=== PATIENT | female | born 1985 | race Caucasian/White ===

== ENCOUNTER 2018-04-08 08:36 | Inpatient (IN) | payer BC ==
[2018-04-08] MEDS ORDERED: Lactated Ringer's 1,000 ML IV ONE (09:50)
[2018-04-08] MEDS ORDERED: Lactated Ringer's 1,000 ML IV SCH ×2 (10:00→20:12)
[2018-04-08 10:04] VITALS: BMI 21.7
[2018-04-08] MEDS ORDERED: Oxytocin 30 units/LR 500ML 30 UNITS/500 ML BAG IV ONE (10:47)
[2018-04-08 11:10] LABS: BASO % 0.3 % (0.0-2.0); EOS # 0.1 K/uL (0.0-0.7); EOS % 1.2 % (0.0-4.0); HEMOGLOBIN 13.1 g/dL (12.0-16.0); LYMPH # 2.2 K/uL (1.0-4.3); LYMPH % 26.9 % (20.0-40.0); MEAN CORPUSCULAR HEMOGLOBIN 30.8 pg (27.0-31.0); MEAN CORPUSCULAR HGB CONC 34.2 g/dL (33.0-37.0); MEAN PLATELET VOLUME 10.3 fl (7.2-11.7); MONO # 0.6 K/uL (0.0-0.8); MONO % 7.4 % (0.0-10.0); NEUT # 5.1 K/uL (1.8-7.0); NEUT % 64.2 % (50.0-75.0); NRBC % 0.1 % (0.0-0.0); RBC 4.24 Mil/uL (3.80-5.20); RED CELL DISTRIBUTION WIDTH 13.6 % (11.5-14.5)
[2018-04-08] MEDS ORDERED: Fentanyl/Bupivacaine HCl 250 ML EPI ONE (12:00)
[2018-04-08] MEDS ORDERED: Lidocaine 1% Inj (20ml) ONE (15:32)
--- NOTE | 2018-04-08 16:13 | OBADHP ---
Datetime: 04/08/2018 15:42 Presentation-Admit: Vertex FHR - Baseline A Provider: 130 Contraction Comments Provider: Q4 min Gestation - Est Wks by US: 38.3 Vital Signs Provider: Reviewed; Within Normal Limits NICHD Variability Prov Fetus A: Moderate 6-25bpm NICHD Accel Fetus A IP Provider: [id number] FHR Category Provider Fetus A: Category I NICHD Decel Fetus A IP Provider: None Dilatation, Provider: 10 Effacement, Provider: 100 Station, Provider: 1 Datetime: 04/08/2018 13:13 Membranes, Provider: Intact Datetime: 04/08/2018 10:07 Admit Comment, IP Provider: HPI: Carla is a 33 year old G1 who presents to triage for evaluation of painful contractions. Began last night around 10pm, patient was able to sleep until 4am when contr actions became more intense and frequent. Now reporting ctx every 3 minutes. Denies LOF or vaginal bl eeding, reporting good movement. Problems Gestational Diabetes - on Metformin, started last week, last US was one week ago Hypothyroidism - on Synthroid, started during PMH Denies PSH Denies Medications Metformin Synthroid PNV Social Currently in a Master's Degree program, lives with her . Denies any drug, alcohol or tobacc o use during Family History Not significant OBJECTIVE See exam section Vitals reviewed labs: A+, GTT 1 hr 168, Hep B neg, HIV/RPR neg, GBS negative Last US 04/04 - EFW 3,092g (41%), cephalic presentation ASSESSMENT/PLAN: 33 year old G1 at 38.3 admitted for spontaneous labor - Initiate labor protocol - Patient would like epidural, we will provide nitrous until then - Vertex during US last week, presentation is confirmed vertex by palpation and exam. Pelvis appea rs adequate, anticipate vaginal delivery - GBS negative Abi Knight MD OB Fellow agree with above pt seen and exmaien dc/o ctx [place], armando lof, vb, +FM pmh as above a/p @ 38.3 wks GA GDMA 2 in labor admit npo, ivf admisisn lab blodo glucsoe q 2 horus lr anehties prn Abdomen - PN: Normal Lungs - PN: Normal Heart - PN: Normal HEENT - PN: Normal General - PN: Normal IP Hx Assessment: The History has been Reviewed and is Current IP Chief Complaint: Uterine contractions EGA AdmitDate IP: 38.3 IP Adm Impression: Term, intrauterine IP Admit Plan: Admit to unit; Initiate labor protocol
--- NOTE | 2018-04-08 17:22 | OBDS ---
DELIVERY PERSONNEL Delivery Doctor: Shahnaz Funk MD Vehicle Modification Technician: Deborah Still RN Anesthesiologist: SHOSHANA Resident: Dr Knight OB FELLOW MATERNAL INFORMATION Delivery Anesthesia: Epidural Medications in Delivery: pitocin Estimated Blood Loss (ml): 150 Placenta Cultured: No Maternal Complications: None Provider Comments: pt was fully dilated and pushing. atraumtic, spontaneous of head. no nuchal cord noted. atruamtic, spontaneous deliery of anterior followed by posterior shoulder followed by delivery of the body. both oral and nasal passages of the baby were bulb suctioned. umbilical cord was clampe d and cut. baby handed to mother on abdomen with rn assistance. cord blood and cord gases collected a nd sent x 2. Spontaneous delivery of intact placenta with membranes. fundus firm. first degree perine al laceration noted and repaired with 2-0 chromic. good hemostasis, no complications. ebl 150ml apgars 9,9 weight of 3195 grams live male LABOR SUMMARY EDC: 04/19/2018 00:00 No. Babies in Womb: 1 Attempted: No Labor Anesthesia: Epidural LABOR INFORMATION Reason for Induction: Not Applicable Onset of Labor: 04/08/2018 13:00 Complete Dilatation: 04/08/2018 14:23 Oxytocin: N/A Group B Beta Strep: Negative Antibiotics # of Doses: 0 Antibiotics Time of Last Dose: 0 Steroids Given: None Reason Steroids Not Administered: Not Applicable MEMBRANES Membranes Rupture Method: Artificial Rupture of Membranes: 04/08/2018 15:25 Length of Rupture (hrs): 1.63 Amniotic Fluid Color: Light Meconium Amniotic Fluid Amount: Moderate Amniotic Fluid Odor: Normal STAGES OF LABOR Stage 1 hrs: 1 Stage 1 min: 23 Stage 2 hrs: 2 Stage 2 min: 40 Stage 3 hrs: 0 Stage 3 min: 4 Total Time in Labor hrs: 4 Total Time in Labor min: 7 VAGINAL DELIVERY Episiotomy: None Laceration Extension: N/A Laceration Type: None Initial Vag Sponge Count: 10 Final Vag Sponge Count: 10 Initial Vag Sharps Count: 0 Final Vag Sharps Count: 0 Sponge Count Correct: Yes Sharps Count Correct: Yes BABY A INFORMATION Delivery Date/Time: 04/08/2018 17:03 Method of Delivery: Vaginal Born in Route : No : N/A Forceps: N/A Vacuum Extraction: N/A Shoulder Dystocia : No SHOULDER DYSTOCIA BABY A Infant Delivery Date/Time: 04/08/2018 17:03 PRESENTATION/POSITION BABY A Presentation: Cephalic Cephalic Presentation: Vertex Breech Presentation: N/A PLACENTA INFORMATION BABY A Placenta Delivery Time : 04/08/2018 17:07 Placenta Method of Delivery: Spontaneous Placenta Status: Delivered SCORES BABY A Heart Rate 1 min: >100 bpm Resp Effort 1 min: Good Cry Reflex Irritability 1 min: Cough or Sneeze or Pulls Away Muscle Tone 1 min: Active Motion Color 1 min: Body Reeder, Extremities Blue SCORE 1 MIN: 9 Heart Rate 5 min: >100 bpm Resp Effort 5 min: Good Cry Reflex Irritability 5 min: Cough or Sneeze or Pulls Away Muscle Tone 5 min: Active Motion Color 5 min: Body Reeder, Extremities Blue SCORE 5 MIN: 9 INFANT INFORMATION BABY A Gestational Age at Delivery: 38.3 Gestational Status: Term Outcome : Liveborn Infant Condition : Stable Infant Sex: Female IDENTIFICATION/MEDS BABY A ID Band Number: [id number] ID Band Location: Left Leg; Left Arm WEIGHT/LENGTH BABY A Birthweight (gms): 3195 Infant Weight (lb): 7 Infant Weight (oz): 1 CORD INFORMATION BABY A No. Cord Vessels: 3 Nuchal Cord : N/A Nuchal Cord Other: N/A True Knot: n/a Cord Blood Taken: Yes Banking/Donate Info: n/a Infant Suction: Mouth; Nose
[2018-04-08] MEDS ORDERED: Oxycodone/Acetaminophen 5/325 mg Tab PO PRN ×4 (17:23→20:12)
[2018-04-08] MEDS ORDERED: Benzocaine/Menthol SPRAY TOP PRN ×2 (17:23→20:12)
[2018-04-08] MEDS ORDERED: Oxytocin 30 UNIT 30 UNITS/500 ML BAG IV ONE (17:45)
[2018-04-09 00:25] VITALS: O2SAT 98
[2018-04-09] MEDS ORDERED: Levothyroxine 50 MCG TAB PO SCH (06:30)
[2018-04-09] MEDS: Levothyroxine 50 MCG TAB PO SCH (06:53)
[2018-04-09 06:57] LABS: BLOOD UREA NITROGEN 9 mg/dl (7-17); GFR NON-AFRICAN AMERICAN > 60
[2018-04-09] MEDS ORDERED: Multivitamin With Minerals Tab PO SCH (09:00)
[2018-04-09] MEDS: Multivitamin With Minerals Tab PO SCH (09:05)
[2018-04-10] MEDS ORDERED: Lansinoh for Breast Feeding Mothers TP ONE (05:09)
[2018-04-10] MEDS: Levothyroxine 50 MCG TAB PO SCH (06:15)
[2018-04-10] MEDS: Multivitamin With Minerals Tab PO SCH (09:27)
--- NOTE | 2018-04-10 11:32 | OBDCSUM ---
Datetime: 04/10/2018 10:47 Discharged to, Provider: Home Follow up at, Provider: Dr. Funk Disch Instr Activity: Normal activity Disch Instr Diet: Regular Discharge Instructions, Provider: Routine instructions given Discharge Diagnosis, Provider: Term Delivered Discharge Time: 04/10/2018 10:47 Follow up in weeks, Provider: 6 Weeks Disch Referrals: None Disch Activity Restrictions: No exercising; No driving; Minimize stair-climbing; No sexual activity; Nothing in vagina - [place], tampons, douche Discharge Comment, Provider: Ob Discharge Summary DOA: 04/08/18 EGA: 38.3 wks Diagnosis: Contractions Pregnacy risk factors:Gestational DM, hypothyroidism Summary of : Pt is a 33 year old delivered at 38.3wk via on 04/08/18 @16.21 with normal progression NB: Male : 9 Weight: 3195g Pt is a 33 year old delivered at 38.3wk via on 04/08/18 @16.21with normal p rogression, patient doing well on PPD2. -Regular diet -Encouraged ambulation -Encourage -PNV 1 tab PO daily -Ibuprofen 600mg 1 tab po Q4-6 hours #20 1 refill -D/C home today -F/u with Dr. Funk 6 weeks post visit DISCHARGE DATA D/C DATE: 04/10/18 TIME: 11:00
--- NOTE | 2018-04-10 11:32 | OBPPN ---
Datetime: 04/10/2018 10:49 PP Pain Prov: Within normal limits PP Nausea Prov: Denies PP Flatus Prov: Yes PP BM Prov: Yes PP Breasts Prov: Not Done PP Heart Prov: Normal PP Lungs Prov: Normal PP Abdomen/Uterus Prov: Normal PP Lochia Prov: Normal PP Vulva/Perineum Prov: Not Done PP CVA Tenderness Prov: Not Done PP Extremities Prov: Normal PP Impression Prov: Normal progression PP Plan Prov: Continue present management; Discharge PP Progress Note Prov: Pt is a 33 year old delivered at 38.3wk via on 04/08/18 @16.21, p t seen this AM, reports uneventful overnight. Pain well controlled with medications. Patient reports she had a BM and is passing gas, voiding well and is getting OOB ambulating w/o dizziness. Patient is breast feeding. Denies headaches, blurry vision, chest pain, SOB, nausea, vomiting, diarrhea, consti pation, dysuria. O: VS WNL HEENT: NCAT RESP: CTA b/l, no wheezing, no rhonchi CV: RRR, S1 S2 present normal, no murmurs. ADB: Soft, uterus firm at umbilical level, + BS EXT: No edema A/P The 33 year old delivered at 38.3wk via on 04/08/18 @16.21, Doing well PPD 2 -Regular diet -Encouraged ambulation -Encouraged -PNV 1 tab PO daily -Ibuprofen 600mg Q6h PRN pain -D/C home today, ED precautions given -F/u with Dr. Funk in 6 weeks for Post visit Radha Hernandez M.D. PGY-1 Case reviewed and discussed with attending Addendum by Dr. Heredia: I have evalauted the patient independently and I agree with the above IP PP Procedures: None Vital Signs Provider PP: Reviewed; Within Normal Limits
[2018-04-10 22:03] VITALS: BP 131/87; PULSE 58; RESP 20; TEMP 98.1
== END 2018-04-10 17:20 | disposition home or self-care (01) | DRG 807 ==
LOC: H.EROB2 08:36 → H.EROB 09:00 → H.EROB2 09:49 → H.EROB 09:50 → H.L&D 10:49 → H.OB/GYN 20:12
PROVIDERS: ADMIT Obstetrics & Gynecology; ATTEND Obstetrics & Gynecology
PROC: 10E0XZZ Delivery of Products of Conception, External Approach (ICD-10-PCS; principal; 2018-04-08)
PROC: 0HQ9XZZ Repair Perineum Skin, External Approach (ICD-10-PCS; 2018-04-08)
PROC: 4A1HXCZ Monitoring of Products of Conception, Cardiac Rate, External Approach (ICD-10-PCS; 2018-04-08)
DX: O70.0 First degree perineal laceration during delivery (principal); Z37.0 Single live birth; Z3A.38 38 weeks gestation of pregnancy; O24.429 Gestational diabetes mellitus in childbirth, unspecified control; O99.284 Endocrine, nutritional and metabolic diseases complicating childbirth; E03.9 Hypothyroidism, unspecified